=== PATIENT | male | born 1985 | race Caucasian/White ===

== ENCOUNTER 2019-11-22 18:35 | Inpatient (IN) | payer MEDICARE, MEDICAID, SELFPAY ==
[2019-11-22 18:40] VITALS: PULSE 80; RESP 16; TEMP 36.8; O2SAT 97; BMI 22.9
--- NOTE | 2019-11-22 18:41 | ED_ITS ---
Entered by Lorri Sidhu, acting as scribe for Atilio Tristan MD HPI - Psych General: Chief Complaint: Psychiatric Symptoms Stated Complaint: mhe Time Seen by Provider: 11/22/19 18:40 Source: patient Mode of arrival: ambulatory Limitations: no limitations History of Present Illness: HPI Narrative: 34 yo male presents to the ED for a MHE. The patient states he is agnostic and that means he needs to be in the [facility]. He said that in the generation in which he was born - he should not be 50/50 in his belief. He said he is addicted to drugs and it will show up as PCP but it isn't. He said he tamara has an intent to hurt someone else but then not really - it's like a T . He said his parents dropped him off and probably just left. He said he doesn't care if he is in the psych unit or where, but it needs to be somewhere in which he will not use drugs. He said he has been in a psych unit before. complaint: other (on drugs) Onset (ago): hour(s) (today) Duration: constant History of same: Yes Relieving factors: none Exacerbating factors: drug use Context: recent drug abuse Associated psychiatric symptoms: delusions Associated symptoms: Reports delusions and depression Treatments prior to arrival: none Review of Systems Const: Denies: fever or chills Eyes: Denies: change in vision ENMT: Denies: throat pain or mouth pain Card: Denies: chest pain Resp: Denies: shortness of breath GI: Denies: abdominal pain, nausea, vomiting or diarrhea Musc: Denies: back pain or joint pain Skin/Breast: Denies: rash Neuro: Denies: headache Psych: Reports: depression Endo: Denies: excessive urination Ron/Lymph: Denies: easy bruising All/Imm: Denies: hives PFSH ED PFSH: Statuses (acute, chronic, etc) shown below reflect problem list status as previously entered and may not be historically accurate Social History (System 11/06/19 @ 16:14 by Lizette Matta) Smoking and tobacco status: current every day smoker Physical Exam Const: COMMON NORMALS: no apparent distress, oriented x3 and healthy appearing HENMT: COMMON NORMALS: normocephalic and external nose normal HEAD & SCALP: normocephalic NOSE: external nose normal Eye: COMMON NORMALS: PERRL PUPIL: Yes PERRL Neck/C-Spine: COMMON NORMALS: full ROM and no lymphadenopathy Chest: COMMONS NORMALS: inspection of chest normal Resp: COMMON NORMALS: normal respiratory effort, no use of accessory muscles and clear to auscultation bilaterally AUSCULTATION: clear to auscultation bilaterally Cardio: COMMON NORMALS: regular rate and regular rhythm RATE: regular rate RHYTHM: regular rhythm GI: COMMON NORMALS: normal to inspection, nondistended, normoactive bowel sounds, soft to palpation, non-tender and no masses PALPATION: Yes soft Back/Pelvis: THORACIC SPINE/UPPER BACK: Yes normal to inspection Extremity: COMMON NORMALS: normal to inspection, full ROM and normal capillary refill Neuro: COMMON NORMALS: oriented x3 Psych: COMMON NORMALS: mental status grossly normal and cooperative MOOD & AFFECT: Yes depressed mood THOUGHT CONTENT: Yes delusion(s) Skin: COMMON NORMALS: no rashes or lesions noted GENERAL SKIN EXAM: no rashes or lesions noted MDM - Psych MDM Narrative: Medical decision making narrative: Patient presents here with suicidal ideations along with drug abuse. Patient is medically cleared I spoke to psychiatrist Dr. Pink and will admit. Lab Data: Labs: Lab Results 11/22/19 11/22/19 Range/Units 18:56 18:56 WBC 12.0 H (4.0-10.0) 10^3/ uL RBC 5.12 (4.1-5.3) 10^6/u L Hgb 17.6 H (11.7-16.6) g/dL Hct 51.3 (42.0-52.0) % MCV 100.2 H (80-94) fL MCH 34.4 H (28.0-34.0) pg MCHC 34.3 (30.0-36.0) g/dL RDW 12.9 (12.1-15.1) % Plt Count 281 (130-400) 10^3/c mm MPV 8.7 (7.4-10.4) fL Neut % (Auto) 79.3 % Lymph % (Auto) 12.1 % Lassen % (Auto) 6.8 % Eos % (Auto) 0.7 % Baso % (Auto) 0.5 % Neut # (Auto) 9.5 H (1.8-7.7) 10^3/u L Lymph # (Auto) 1.5 (0.8-4.8) 10^3/u L Lassen # (Auto) 0.8 (0.2-0.9) 10^3/u L Eos # (Auto) 0.1 (0.0-0.8) 10^3/u L Baso # (Auto) 0.1 (0.0-0.1) 10^3/u L Nucleated RBC % (a uto) 0 % Nucleated RBCs # 0.0 /100WBC Sodium 136 (136-145) mmol/L Potassium 4.3 (3.5-5.1) mmol/L Chloride 101 (98-107) mmol/L Carbon Dioxide 22 (22-29) mmol/L Anion Gap 17.3 (5-19) BUN 7 (6-20) mg/dL Creatinine 0.8 (0.7-1.2) mg/dL GFR Calculation 112.0 (90-130) mL/min Glucose 119 H (74-109) mg/dL Calcium 10.0 (8.5-10.5) mg/dL Total Bilirubin 0.8 (0.15-1.2) mg/dL AST 27 (0-40) U/L ALT 16 (0-41) U/L Alkaline Phosphata se 111 (40-130) IU/L Total Protein 8.2 (6.6-8.7) g/dL Albumin 5.2 (3.5-5.2) g/dL Globulin 3.0 (1.3-4.6) g/dL Salicylates < 0.3 L (3-10) mg/dL Acetaminophen < 5.0 L (10-30) ug/mL Ethyl Alcohol < 10 (0-10) mg/dL Discharge Plan Discharge Admit Provider: Domingo Pink Coding Level of Care Code ED Counter Manager for Chg Fwd Exam Problem Focused The documentation recorded by the Thea norris Valerie R, accurately reflects the service I personally performed and the decisions made by Kun bone Korby, MD Nov 22, 2019 18:35
[2019-11-22 19:01] LABS: Basophils # 0.1 10^3/uL (0.0-0.1); Basophils % 0.5 %; Eosinophils # 0.1 10^3/uL (0.0-0.8); Eosinophils % 0.7 %; Hematocrit 51.3 % (42.0-52.0); Hemoglobin 17.6 g/dL (11.7-16.6); Lymphocytes # 1.5 10^3/uL (0.8-4.8); Lymphocytes % 12.1 %; Mean Corpuscular HGB Conc 34.3 g/dL (30.0-36.0); Mean Corpuscular Hemoglobin 34.4 pg (28.0-34.0); Mean Corpuscular Volume 100.2 fL (80-94); Mean Platelet Volume 8.7 fL (7.4-10.4); Monocytes # 0.8 10^3/uL (0.2-0.9); Monocytes % 6.8 %; Neutrophils # 9.5 10^3/uL (1.8-7.7); Neutrophils % 79.3 %; Nucleated Red Blood Cells % 0 %; Platelet Count 281 10^3/cmm (130-400); Red Blood Count 5.12 10^6/uL (4.1-5.3); Red Cell Distribution Width 12.9 % (12.1-15.1)
[2019-11-22 19:18] LABS: Alanine Aminotransferase 16 U/L (0-41); Albumin Level 5.2 g/dL (3.5-5.2); Alkaline Phosphatase 111 IU/L (40-130); Anion Gap 17.3 (5-19); Aspartate Amino Transferase 27 U/L (0-40); Blood Urea Nitrogen 7 mg/dL (6-20); Carbon Dioxide 22 mmol/L (22-29); Chloride 101 mmol/L (98-107); Creatinine Clr Calc Pharmacy 136.5563; Glucose 119 mg/dL (74-109); Potassium 4.3 mmol/L (3.5-5.1); Sodium 136 mmol/L (136-145); Total Bilirubin 0.8 mg/dL (0.15-1.2); Total Protein 8.2 g/dL (6.6-8.7)
[2019-11-22 19:21] LABS: Acetaminophen < 5.0 ug/mL (10-30); Alcohol Level < 10 mg/dL (0-10); Salicylate < 0.3 mg/dL (3-10)
--- NOTE | 2019-11-22 19:34 | PC.NURSE ---
Patient requested water, okayed by doctor. Water was given.
[2019-11-22 20:29] VITALS: BP 149/104; PULSE 74; RESP 16; O2SAT 98
[2019-11-22 20:50] VITALS: BP 149/104; PULSE 74; RESP 16; O2SAT 98
[2019-11-22 22:00] VITALS: BP 154/115; PULSE 84; RESP 19; TEMP 36.6; O2SAT 98
[2019-11-22 22:26] LABS: Amphetamines Screen Urine Negative (Negative); Barbiturates Screen Urine Negative (Negative); Benzodiazepines Screen Urine Positive (Negative); Cocaine Screen Urine Negative (Negative); Opiate Screen Urine Negative (Negative); PCP Screen Urine Negative (Negative); THC Screen Urine Negative (Negative)
--- NOTE | 2019-11-22 23:08 | CTR_ITS ---
PROCEDURE INFORMATION: Exam: CT Head Without Contrast Exam date and time: 11/22/2019 11:50 PM Age: 34 years old Clinical indication: Injury or trauma; Fall; Initial encounter; Blunt trauma (contusions or hematomas); Without loss of consciousness TECHNIQUE: Imaging protocol: Computed tomography of the head without contrast. Total DLP: 864.65 mGy-cm Radiation optimization: All CT scans at this facility use at least one of these dose optimization techniques: automated exposure control; mA and/or kV adjustment per patient size (includes targeted exams where dose is matched to clinical indication); or iterative reconstruction. COMPARISON: CT head wo con* [id number] 12/07/2016 10:02 PM FINDINGS: Brain: There is a moderate amount of acute subarachnoid blood in the left frontal and temporal regions. Difficult to exclude very small amount of subdural blood or hemorrhagic contusion in the left temporal region, (axial image #20, series 2). Followup will be helpful, as clinically directed. No significant mass effect or midline shift. No definite acute infarct by CT. Ventricles: Ventricle size is normal for age. Bones/joints: No definite acute skull fracture. Sinuses: Mild mucosal thickening in the sphenoid and ethmoid sinuses. Included paranasal sinuses otherwise appear essentially clear. Mastoid air cells: No significant acute finding. CT/CT head wo con* [id number] IMPRESSION: 1. Acute subarachnoid hemorrhage, presumably post-traumatic. See above discussion. 2. No significant mass effect or midline shift. 3. Other findings discussed above. Radiation Dose CTDIVOL = (mGy): DLP = 864.65 (mGy-cm)
[2019-11-23] VITALS (22 sets, daily range): BP systolic 114–136; BP diastolic 65–94; PULSE 66–112; RESP 15–22; O2SAT 89–96
[2019-11-23] MEDS: ziprasidone 20 mg/mL SDV IM (00:22)
--- NOTE | 2019-11-23 00:24 | PC.NURSE ---
PT BEGAN YELLING OUT THAT ANOTHER PT ON THE UNIT WAS AGITATING HIM BECAUSE HE COULD HEAR HIM. PT BECAME INCREASINGLY AGITATED AND YELLING THAT HE COULD NOT STAND TO HEAR THE VOICE. PT AGREEABLE TO PRN SO RECEIVED GEODON 20MGS IM FOR AGITATION. REMAINS IN BED QUIETLY AT THIS TIME. WILL CONTINUE TO MONITOR,.
--- NOTE | 2019-11-23 01:05 | PC.NURSE ---
PT RESTING QUIETLY AT THIS TIME WITH EYES CLOSED. PT NOTED TO RELAX AND FALL ASLEEP 30 MINUTES AFTER PRN GEODON ADMINISTERED.. WILL CONTINUE WITH FREQUENT MONITORING
--- NOTE | 2019-11-23 01:25 | PC.NURSE ---
received from [facility] and admitted to ICU 10. S/p intentional fall with reported ICH and bleeding from left ear. Pt received Geodon IM prior to transfer and currently answers his name and year of . He is not following commands however he does move all extremities equally and purposefully to return to position of comfort. Pupils are 1 mm and fixed bilaterally. Sitter at bedside due to continued 96 hour hold
--- NOTE | 2019-11-23 02:18 | PM.TDS ---
Transfer Summary Providers Date of Admission: 11/22/19 19:54 Date of Discharge: 11/23/19 Attending Provider at Admission: Domingo Pink MD Attending Provider at Transfer: Domingo Pink MD Primary Care Provider: SANTIAGO Laird Anticipated Date of Transfer: Anticipated date of transfer: 11/23/19 Receiving Facility & Provider: Receiving Provider: [] Receiving facility: [] Reason for Visit Reason for Visit: Reason For Visit: SUICIDAL IDEATION, 96 HR HOLD Hospital Course Hospital Course: This patient is agnostic and was put on 96-hour hold in NPU for acute psychosis, U tox positive for benzodiazepines, he had acute flareup when another patient was arguing with him and was trying to quote Bible. At that time he threw himself on the floor. Analytics Specialist was consulted after that event. Patient was evaluated on stat basis, his neuro examination was unremarkable other than dilated sluggish pupil bilaterally, his right ear had mild to moderate oozing of blood without any evidence of laceration of external ear canal. NIH 0, CT head was obtained on stat basis which showed traumatic moderate subarachnoid hemorrhage with possible fracture of right mastoid bone. Patient was transferred to ICU on stat basis after reviewing CT head, I have given him transnemic acid, 1 g of Keppra, we do not have nimodipine in our pharmacy as formulary medication, target blood pressure to keep below 110 mmHg. Currently he is in semi-galindo position, he was given Ativan 0.[address] head. I am not able to get more information from him I am not seeing any H&P done by psychiatrist as well. Currently patient is sedated and I am limited to get information. Discharge Summary: Patient is being transferred to an appropriate facility with availability of psychiatrist and neurosurgeon for acute psychosis and traumatic subarachnoid hemorrhage evaluation. Neurosurgeon is not available at [facility] [place] for this week For now I am giving Cardene drip to keep blood pressure less than 110, Keppra loading dose, transnemic acid, we do not have nimodipine as formulary here. Physical Exam Narrative: EXAM NARRATIVE: Currently patient is sedated, on my earlier examination, his NIH score 0 Bright bleed from right ear without evidence of laceration of external canal S1-S2, without any signs of heart failure or murmur Lungs are clear to auscultation without any adventitious sounds Abdomen soft nontender nondistended He is able to move all of his extremities, reflexes cubical, bilateral pupils dilated sluggish to react to light, no cerebellar signs TS Data Data Completed and Pending: Completed Studies During Hospitalization Category Date Time Status CT head wo con* 7 0450 Stat Cat Scan 11/22/19 23:08 Completed Labs from last 24 hours 11/22/19 11/22/19 11/22/19 20:00 18:56 18:56 WBC 12.0 H RBC 5.12 Hgb 17.6 H Hct 51.3 MCV 100.2 H MCH 34.4 H MCHC 34.3 RDW 12.9 Plt Count 281 MPV 8.7 Neut % (Auto) 79.3 Lymph % (Auto) 12.1 Garrett % (Auto) 6.8 Eos % (Auto) 0.7 Baso % (Auto) 0.5 Neut # (Auto) 9.5 H Lymph # (Auto) 1.5 Garrett # (Auto) 0.8 Eos # (Auto) 0.1 Baso # (Auto) 0.1 Nucleated RBC % (a uto) 0 Nucleated RBCs # 0.0 Sodium 136 Potassium 4.3 Chloride 101 Carbon Dioxide 22 Anion Gap 17.3 BUN 7 Creatinine 0.8 GFR Calculation 112.0 Glucose 119 H Calcium 10.0 Total Bilirubin 0.8 AST 27 ALT 16 Alkaline Phosphata se 111 Total Protein 8.2 Albumin 5.2 Globulin 3.0 Salicylates < 0.3 L Urine Opiates Scre en Negative Acetaminophen < 5.0 L Ur Barbiturates Sc reen Negative Ur Phencyclidine S crn Negative Ur Amphetamines Sc reen Negative U Benzodiazepines Scrn Positive H Urine Cocaine Scre en Negative U Marijuana (THC) Screen Negative Ethyl Alcohol < 10 Addt'l Data from Hospital Stay: [facility] [address] [place] [address] CT Scan Report Signed with Shashank Patient: Estevan Vick #: [id number] : 1985Acct#:[id number] Age/Sex: 34 / MADM Date: 11/22/19 [facility] Attending Dr: Domingo Pink MD Ordering Provider/Ordering MD: Jerome Christina MD Date of Service: 11/22/19 Procedure(s): CT head wo con* 50705 Accession Number(s): [id number] Report Number: [id number]/CT head wo con* [id number] This report contains findings that may be critical to patient care. I discussed the critical exam findings by phone with Jerome Carrillo at 12:31 AM CHIEF SCIENCE OFFICER, 11/23/2019. We discussed the subarachnoid blood and possible subdural blood. Additional findings were also discussed that were not included in the initial report. Patient reportedly has blood in the external ear canal on the right. There is a small amount fluid or possible blood in the right mastoid air cells. No significant fluid in the right middle ear cavity at this time. I think there could be a very subtle nondisplaced fracture in the right mastoid region, just superior to the right ear. (Probably best seen on axial image #15, series 2 ). This is a subtle finding and somewhat equivocal. However,a similar lucency is not seen on the comparison exam. Given the clinical findings, it is probably safer to assume that there is a subtle nondisplaced fracture through this region. The findings were acknowledged and understood. Radiation Dose CTDIVOL = (mGy): DLP = 864.65 (mGy-cm) Addendum Dictated By: Rickey Orozco MD Addendum Signed By: Rickey Orozco MDSigned Date/Time:11/23/19 0046 Addendum Cosigned By: PROCEDURE INFORMATION: Exam: CT Head Without Contrast Exam date and time: 11/22/2019 11:50 PM Age: 34 years old Clinical indication: Injury or trauma; Fall; Initial encounter; Blunt trauma (contusions or hematomas); Without loss of consciousness TECHNIQUE: Imaging protocol: Computed tomography of the head without contrast. Total DLP: 864.65 mGy-cm Radiation optimization: All CT scans at this facility use at least one of these dose optimization techniques: automated exposure control; mA and/or kV adjustment per patient size (includes targeted exams where dose is matched to clinical indication); or iterative reconstruction. COMPARISON: CT head wo con* [id number] 12/07/2016 10:02 PM FINDINGS: Brain: There is a moderate amount of acute subarachnoid blood in the left frontal and temporal regions. Difficult to exclude very small amount of subdural blood or hemorrhagic contusion in the left temporal region, (axial image #20, series 2). Followup will be helpful, as clinically directed. No significant mass effect or midline shift. No definite acute infarct by CT. Ventricles: Ventricle size is normal for age. Bones/joints: No definite acute skull fracture. Sinuses: Mild mucosal thickening in the sphenoid and ethmoid sinuses. Included paranasal sinuses otherwise appear essentially clear. Mastoid air cells: No significant acute finding. CT/CT head wo con* [id number] IMPRESSION: 1. Acute subarachnoid hemorrhage, presumably post-traumatic. See above discussion. 2. No significant mass effect or midline shift. Vitals: Last Vital Signs Temp 97.8 F 11/22/19 22:00 Pulse 84 11/22/19 22:00 Resp 19 H 11/22/19 22:00 BP 154/115 11/22/19 22:00 Pulse Ox 98 11/22/19 22:00 TS Medications Medications Home Medications baclofen 10 mg tablet 10 mg PO TID 10/27/19 [History] citalopram 10 mg tablet 10 mg PO ONCE 10/27/19 [History] clonidine HCl 0.1 mg tablet 0.1 mg PO TID 10/27/19 [History] cyanocobalamin (vitamin B-12) 100 mcg tablet 100 mcg PO ONCE 10/27/19 [History] dextromethorphan-guaifenesin 30 mg-600 mg tablet extended [id number] hr 1 tab PO Q12H 10/27/19 [History] dicyclomine 20 mg tablet 20 mg PO TID 10/27/19 [History] divalproex 500 mg tablet,extended release 24 hr 500 mg PO ONCE 10/27/19 [History] famotidine 20 mg tablet 20 mg PO BID 10/27/19 [History] pyridoxine (vitamin B6) 50 mg capsule 50 mg PO ONCE 10/27/19 [History] zolpidem 10 mg tablet 10 mg PO ONCE 10/27/19 [History] baclofen 10 mg tablet 10 mg PO TID PRN #90 tab 10/31/19 [Rx] citalopram 10 mg tablet 10 mg PO .HS #30 tab 10/31/19 [Rx] divalproex 500 mg tablet,extended release 24 hr 500 mg PO .HS #30 tab 10/31/19 [Rx] doxepin 10 mg capsule 10 mg PO .HS cap 10/31/19 [History Confirmed 10/31/19] Active Medications Acetaminophen (Tylenol) 650 mg PO Q4H PRN PRN Reason: MILD PAIN Benztropine Mesylate (Cogentin) 1 mg PO BID PRN PRN Reason: Mild Extrapyramidal symptoms Camphor/Menthol/Phenol (Blistex) 1 applic TOPICAL Q1H PRN PRN Reason: DRYNESS Diphenhydramine HCl (Benadryl) 50 mg IM ONCE PRN PRN Reason: Severe Extrapyramidal Symptoms Diphenhydramine HCl (Benadryl) 50 mg IM Q4H PRN PRN Reason: Severe Aggression Hydroxyzine Pamoate (Vistaril) 50 mg PO Q6H PRN PRN Reason: ANXIETY Levetiracetam (Keppra) 1,000 mg PO BID HANNAH Loperamide HCl (Imodium Capsule) 2 mg PO Q6H PRN PRN Reason: DIARRHEA Lorazepam (Ativan) 2 mg IM Q4H PRN PRN Reason: Severe Aggression Nicotine (Nicoderm 21 Mg Patch) 1 patch TRANSDERMA DAILY PRN PRN Reason: NICOTINE WITHDRAWAL Nicotine Polacrilex (Nicorette) 2 mg BUCCAL Q2H PRN PRN Reason: NICOTINE WITHDRAWAL Olanzapine (Zyprexa Zydis) 5 mg PO Q4H PRN PRN Reason: Agitation/Psychosis Ondansetron HCl (Zofran) 4 mg PO Q6H PRN PRN Reason: NAUSEA AND VOMITING Trazodone HCl (Desyrel) 50 mg PO BEDTIME PRN PRN Reason: SLEEP Discharge Plan Discharge Prescriptions: No Action doxepin 10 mg capsule 10 mg PO .HS RF: 0 divalproex [Depakote ER] 500 mg tablet extended release 24 hr 500 mg PO .HS Qty: 30 RF: 0 citalopram [Celexa] 10 mg tablet 10 mg PO .HS Qty: 30 RF: 0 baclofen 10 mg tablet 10 mg PO TID PRN (Reason: muscle spasm) Qty: 90 RF: 0 Transfer Attestations Time Spent in Transfer Care*: greater than 30 min Status at Transfer: Cognitive status at transfer: mildly impaired cognition, Behavioral status at transfer: cooperative, Quality Metrics Clinical Quality Measures: During this hospital stay, did patient experience: None Coding Level of Care Code Acute Senior Clinical Project Manager for Iza Owens
--- NOTE | 2019-11-23 03:21 | PM.CONSULT ---
Providers/Reason For Consult Consulting Physican/Specialty*: Hospitalist service Reason for Consult*: Traumatic subarachnoid hemorrhage Attending Physician: Domingo Pink MD Primary Care Provider: SANTIAGO Laird History of Present Illness History of Present Illness Estevan Vick is a 34 year old male who has been admitted to neuropsychiatric unit for acute psychosis secondary to polysubstance abuse, he was put on 96-hour hold. He is agnostic and had aggressive argument with 1 of other neuropsychiatric patient when Bible was quoted. Patient was very aggressive initially and then he threw himself on the floor and he started bleed from his right ear, cutter wet machine was consulted for further evaluation, NIH score 0, head CT showed traumatic subarachnoid hemorrhage, there is limited information available as I am not able to see any history and physical. Patient currently is sedated because of Ativan that was given to get CT head. We are waiting for placement to neuro ICU with availability of inpatient psychiatrist because of his acute psychosis and traumatic subarachnoid hemorrhage. Not able to obtain past medical, surgical and family history Review of Systems General: Reports: ROS unobtainable due to mental status Meds/Allergies Home Medications and Allergies Home Medications Medication Instructions Recorded Confirmed Type baclofen 10 mg tablet 10 mg PO TID 10/27/19 History citalopram 10 mg tablet 10 mg PO ONCE 10/27/19 History clonidine HCl 0.1 mg tablet 0.1 mg PO TID 10/27/19 History cyanocobalamin (vitamin B-12) 100 100 mcg PO ONCE 10/27/19 History mcg tablet dextromethorphan-guaifenesin 30 1 tab PO Q12H 10/27/19 History mg-600 mg tablet extended hr dicyclomine 20 mg tablet 20 mg PO TID 10/27/19 History divalproex 500 mg tablet,extended 500 mg PO ONCE 10/27/19 History release 24 hr famotidine 20 mg tablet 20 mg PO BID 10/27/19 History pyridoxine (vitamin B6) 50 mg 50 mg PO ONCE 10/27/19 History capsule zolpidem 10 mg tablet 10 mg PO ONCE 10/27/19 History doxepin 10 mg capsule 10 mg PO .HS cap 10/31/19 10/31/19 History Allergies Allergy/AdvReac Type Severity Reaction Status Date / Time haloperidol [From Haldol] Allergy Unknown Verified 11/06/19 16:14 lamotrigine [From Lamictal] Allergy Unknown Verified 11/06/19 16:14 shellfish derived Allergy Unknown Verified 11/06/19 16:14 Current Medications Current Medications Generic Name Dose Route Start Last Admin Trade Name Freq PRN Reason Stop Dose Admin Nicardipine HCl 25 mg/ Sodium 250 mls @ 0 mls/hr 11/23/19 03:00 11/23/19 03:11 Chloride IV 10 mg/hr .Q0M HANNAH 100 mls/hr Titration Protocol Per Protocol PFSH Acute PFSH: Statuses (acute, chronic, etc) shown below reflect problem list status as previously entered and may not be historically accurate Social History (System 11/06/19 @ 16:14 by Lizette Matta) Smoking and tobacco status: current every day smoker Vitals/I&O/Wt Last Vital Signs Temp 97.8 F 11/22/19 22:00 Pulse 79 11/23/19 03:00 Resp 19 H 11/23/19 03:00 BP 127/79 11/23/19 03:00 Pulse Ox 94 11/23/19 03:00 11/22/19 11/22/19 11/23/19 14:59 22:59 06:59 Intake Total Balance Weight last 48 hrs Weight 72.575 kg Physical Exam Narrative: EXAM NARRATIVE: Patient is sedated with benzodiazepine for now Otherwise he was able to move all of his extremities, NIH score 0, right ear bleeding positive without any laceration, Finger-nose test positive Bilateral pupils sluggish, dilated S1, S2 Lungs are clear to auscultation Abdomen is soft nontender nondistended Acute psychosis with tangential thoughts A&P Assessment and plan (1) Acute psychosis: Status: Acute Code(s): F23 - Brief psychotic disorder (2) Traumatic subarachnoid hemorrhage: Status: Acute Code(s): S06.6X9A - Traumatic subarachnoid hemorrhage with loss of consciousness of unspecified duration, initial encounter Additional A&P Information Transfer to [facility], Dr. Eugene has accepted the patient to neuro ICU also need inpatient psychiatry because of his acute psychosis Currently I am treating him with Keppra 1 g, Tranxene Cy acid 1 g, Cardene drip to keep blood pressure less than 110, currently he is sedated, Consult Attestations Medical Necessity Statement: Transfer to neurosurgery ICU Time Spent in Patient Care: 60 Coding Level of Care Code Acute Diabetes Specialist for Iza Fwd Diagnoses Acute psychosis F23 Traumatic subarachnoid hemorrhage S06.6X9A
--- NOTE | 2019-11-23 03:46 | PC.NURSE ---
Patient behavior At approximately 2250 the patient began yelling in the hallway at another patient. Estevan known to be agnostic, was stating yazdanism delusions and the other patient was psychotic (carrying a bible) and yelling back at him. The other patient was taken to the other end of the sen continuing to yell garbled statements and Estevan walked towards the day room yelling at staff that Satedith was good and Damián was bad and that he did not want to be around that person (patient). He was offered to return to his room away from other patients and he loudly yelled and refused to move. He continued to yell anti-Bahman/yazdanism statements. He was offered medication, water and asked what we could do to help him and he stated he wanted a knife and made a cutting motion across his throat. I reminded him that we were he to help him and to keep him safe. He looked to the ceiling and then moved under a camera and asked if it worked. I stated I could not confirm. Security, house calls nurse practitioner and 2 other staff were standing behind me. Security was making comforting and reassuring statements and patient appeared to be calming. He stood with his arms out to his sides and counted 3,2,1 and then free fell forward intentionally, using no stopping reflexes. Code 10 called at 2258. Staff approached patient, unresponsive (less than a minute) with a pulse, was rolled over over, sternal rub, began moving and opening eyes. Vitals taken 147/[address] Pink, psychiatrist gave order for hospitalist consult. Orders obtained from Dr. Christina for stat CT, which was completed at 2308. Patient returned to unit on stretcher. Dr. Christina on unit to see patient and stated possible tympanic membrane rupture due to blood in ear . Orders received to monitor patient, neuro checks every [address] Pink order 20MG Geodon IM one time now because patient immediately became agitated and enraged with patients talking in the hallway. Dr. Christina returned to unit and stated patient had a subarachanoid hemorrhage. Dr. Chritsina spoke with Dr. Pink and decision was made to transfer for ICU 0120.
--- NOTE | 2019-11-23 04:11 | PC.NURSE ---
Addendum entered by Keisha Lemus RN 11/23/19 04:13: Patient off unit at approximately 2304 11/22/[address] Original Note: Patient off unit Patient transferred to CT by stretcher with RN and security.
--- NOTE | 2019-11-23 04:12 | PC.NURSE ---
Patient returned to unit Patient returned to unit at 2320 11/22/19 with RN and security on stretcher.
--- NOTE | 2019-11-23 04:16 | PC.NURSE ---
Patient behavior at approximately 204911/22/19 Estevan was sitting on bench and another patient told him to move over. Estevan yelled at patient which was holding a bible that he was agnostic and to get away from him. Patient was removed to another area and Estevan was calmed.
--- NOTE | 2019-11-23 04:24 | PC.NURSE ---
At 0052 11/23/[address] Christina made the decision to transfer patient to ICU.
--- NOTE | 2019-11-23 04:25 | PC.NURSE ---
At 0120 11/23/19 patient was transferred to ICU on stretcher with RN, Security and house sitter with valuables. Report given to Kalina MERRILL.
--- NOTE | 2019-11-23 05:17 | PC.NURSE ---
[facility] 2 and Labatolol sent with ambulance for extended transfer.
--- NOTE | 2019-11-23 06:04 | PC.NURSE ---
0230 11/23/19 Left phone messages with sisters number and parents number to contact [facility] for an update on a family members status, permission on notification form.
--- NOTE | 2019-11-24 20:25 | PC.NURSE ---
11/22/19 @ 9090 Fall risk initiated due to intentional fall
== END 2019-11-23 05:17 | disposition short-term general hospital (02) | DRG 885 ==
LOC: ER 20:08 → NP 20:20 → ICU 11-23 01:38
PROVIDERS: Admitting Provider Psychiatry & Neurology Psychiatry; Emergency Provider Emergency Medicine; Family Provider Nurse Practitioner; PCP Nurse Practitioner; Visit Provider Psychiatry & Neurology Psychiatry
DX: F23 Brief psychotic disorder (principal); S06.6X9A Traumatic subarachnoid hemorrhage with loss of consciousness of unspecified duration, initial encounter; F17.210 Nicotine dependence, cigarettes, uncomplicated; F11.129 Opioid abuse with intoxication, unspecified; X83.8XXA Intentional self-harm by other specified means, initial encounter; Y92.238 Other place in hospital as the place of occurrence of the external cause
CPT/HCPCS: 12345; 36415; 51702; 70450; 80053; 80307; 85025; 99284; J3486; J7050

== ENCOUNTER 2019-12-05 19:50 | Emergency (ER) | payer MEDICARE, MEDICAID, SELFPAY ==
[2019-12-05 19:52] VITALS: BP 152/92; PULSE 102; RESP 16; TEMP 36.6; O2SAT 98; BMI 24.3
--- NOTE | 2019-12-05 19:54 | ED_ITS ---
Entered by Shireen Sparks, acting as scribe for Anupama Cintron DO HPI - Psych General: Chief Complaint: Psychiatric Symptoms Stated Complaint: 96 Time Seen by Provider: 12/05/19 19:53 Source: patient Mode of arrival: ambulatory Limitations: no limitations History of Present Illness: HPI Narrative: 34 yo Male presents to ED with complaint of 96 hour hold. Pt was brought in and dropped off by the police with no report from the police to nursing staff. Pt is calm and polite in the patient room. Pt denies homicidal or suicidal ideation. Pt states that he was at home when he was picked up and brought in due to his parents having concerns about his well being. Paperwork given to the ED staff is not a complete 96 hour hold packet. MD complaint: other (96 hour hold) Onset (ago): unknown Duration: resolved prior to arrival Relieving factors: none Exacerbating factors: none Associated psychiatric symptoms: none Associated symptoms: Reports no associated symptoms; Deny depression, homicidal ideation or suicidal ideation Treatments prior to arrival: none Review of Systems Const: Denies: fever, chills, change in appetite or malaise Eyes: Denies: change in vision, blurry vision, eye discharge or eye redness ENMT: Denies: throat pain, uvular edema, painful swallowing, mouth pain, dental pain, nasal congestion or facial/sinus pain Card: Denies: chest pain, irregular heart rhythm, swelling of feet/ankles, shortness of breath on exertion, shortness of breath when lying down or leg pain with exertion Resp: Denies: shortness of breath, productive cough, wheezing or coughing up blood GI: Denies: abdominal pain, nausea, vomiting, diarrhea, constipation or fecal incontinence : Denies: flank pain, painful urination, urinary frequency, urinary urgency or urinary hesitancy Musc: Denies: neck pain, back pain, extremity pain or extremity swelling Skin/Breast: Denies: rash, itching, redness, yellow skin or dry skin Neuro: Denies: headache, numbness in extremities, weakness in extremities, changes in sensation, lack of coordination or difficulty walking Psych: Denies: anxiety, depression, mood swings, panic attacks, sleeping less, suicidal ideation or homicidal ideation Endo: Denies: excessive urination, excessive thirst or tired all the time Ron/Lymph: Denies: easy bruising, petechiae or enlarged lymph nodes All/Imm: Denies: hives, throat swelling, facial swelling, acute wheezing or seasonal allergies PFSH ED PFSH: Statuses (acute, chronic, etc) shown below reflect problem list status as previously entered and may not be historically accurate Social History (System 11/06/19 @ 16:14 by Lizette Matta) Smoking and tobacco status: current every day smoker Physical Exam Const: COMMON NORMALS: no apparent distress, oriented x3, no limitations, healthy appearing, alert and well nourished GENERAL APPEARANCE: cooperative, comfortable, well kempt and well developed ORIENTATION/CONSCIOUSNESS: Yes awake, Yes oriented to person, Yes oriented to place and Yes oriented to time HENMT: COMMON NORMALS: normocephalic, head/scalp atraumatic, hearing grossly normal bilaterally, external ears normal, EAC's normal, TM's normal bilaterally, external nose normal, nasal mucous membranes and turbinates normal, moist oral mucous membranes, oropharynx normal, dentition normal and gingiva normal HEAD & SCALP: normal to inspection, normocephalic and atraumatic FACE & SINUS: normal facial exam NOSE: external nose normal and nasal mucous membranes and turbinates normal EXTERNAL EAR: Yes external ears normal EXTERNAL AUDITORY CANAL: EAC's normal TYMPANIC MEMBRANE: TM's normal bilaterally MOUTH: oral and palatal mucosa normal, lip normal and tongue normal THROAT: no uvular edema Eye: COMMON NORMALS: PERRL, EOMs intact bilaterally, conjunctivae normal, no scleral icterus and normal visual khoury by confrontation GENERAL EYE: normal appearance of both eyes and normal light reflex VISUAL ACUITY: Yes acuity normal ALIGNMENT: Yes alignment normal PERIORBITAL: periorbital findings normal EYELID: eyelids normal CONJUNCTIVA: Yes conjunctivae normal SCLERA: sclerae normal PUPIL: Yes PERRL and Yes accommodation reflex normal DIRECT OPHTHALMOSCOPY: Yes normal light reflex Neck/C-Spine: COMMON NORMALS: full ROM, no lymphadenopathy, supple, no meningeal signs and no JVD GENERAL: Yes normal visual inspection CAROTIDS: Yes normal carotid upstroke CERVICAL SPINE: Yes cervical ROM normal Lymph: LYMPHATIC: no lymphadenopathy noted Chest: COMMONS NORMALS: inspection of chest normal CHEST: Yes symmetrical chest wall rise Resp: COMMON NORMALS: normal respiratory effort, no retractions, no use of accessory muscles and clear to auscultation bilaterally EFFORT & INSPECTION: Yes able to speak in complete sentences and Yes symmetric chest movement AUSCULTATION: clear to auscultation bilaterally Cardio: COMMON NORMALS: no JVD, regular rate, regular rhythm, S1 normal heart sound, S2 normal heart sound, no murmurs and peripheral pulses 2+ throughout RATE: regular rate RHYTHM: regular rhythm HEART SOUNDS: S1 normal and S2 normal PERIPHERAL PULSES: pulses 2+ throughout GI: COMMON NORMALS: normal to inspection, nondistended, normoactive bowel sounds and non-tender : COMMON NORMALS: Yes no CVA tenderness BLADDER/KIDNEY EXAM: Yes no CVA tenderness Back/Pelvis: COMMON NORMALS: no CVA tenderness, thoracic and lumbar spine normal to inspection, no thoracic nor lumbar tenderness and thoraco-lumbar ROM normal Extremity: COMMON NORMALS: normal to inspection, full ROM, normal capillary refill, no calf tenderness and no pedal edema Neuro: COMMON NORMALS: oriented x3, CN's II-XII intact bilaterally, moves all extremities, no focal motor deficits, no sensory deficits noted and gait normal SENSORIUM/ORIENTATION: Yes alert, Yes oriented to person, Yes oriented to place and Yes oriented to time MENINGEAL SIGNS: Yes no meningeal signs SPEECH: speech normal GAIT: Yes normal gait MOTOR EXAM: strength 5/5 throughout, no pronator drift and no tremor noted Psych: COMMON NORMALS: mental status grossly normal, thought process normal, cooperative, affect normal, speech normal and activity/motor behavior normal APPEARANCE: Yes well kempt SPEECH: Yes normal speech THOUGHT PROCESS: normal thought process THOUGHT CONTENT: Yes normal thought content INSIGHT: insight good Skin: COMMON NORMALS: no rashes or lesions noted, no wounds, skin turgor normal and no jaundice GENERAL SKIN EXAM: no rashes or lesions noted and turgor normal Discharge Plan Discharge Patient Disposition: Home, Self-Care Clinical Impression: Encounter for medical screening examination, Depression Condition: Stable Prescriptions: No Action doxepin 10 mg capsule 10 mg PO .HS RF: 0 divalproex [Depakote ER] 500 mg tablet extended release 24 hr 500 mg PO .HS Qty: 30 RF: 0 citalopram [Celexa] 10 mg tablet 10 mg PO .HS Qty: 30 RF: 0 baclofen 10 mg tablet 10 mg PO TID PRN (Reason: muscle spasm) Qty: 90 RF: 0 Referrals: Melissa Prather, FLAT BED OPERATOR-C [Primary Care Provider] - Discharge Diet: Usual diet Discharge Activity: Resume usual activity Patient Instructions: Depression Coding Level of Care Code ED Spout Liner Helper for Chg Fwd Exam Problem Focused The documentation recorded by the Clare norris Carmen, accurately reflects the service I personally performed and the decisions made by Abdulaziz bone Amanda, DO Dec 05, 2019 19:50
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
[2019-12-05 21:11] VITALS: BP 127/88; PULSE 100; RESP 16; O2SAT 98
== END 2019-12-05 21:16 | disposition home or self-care (01) ==
PROVIDERS: Emergency Provider Emergency Medicine; Family Provider Nurse Practitioner; PCP Nurse Practitioner
DX: F32.9 Major depressive disorder, single episode, unspecified (principal); F17.210 Nicotine dependence, cigarettes, uncomplicated
CPT/HCPCS: 12345; 99281

== ENCOUNTER → 2020-10-04 11:44 | Outpatient (BNVA) | payer MEDICARE, MEDICAID, SELFPAY | PROVIDERS: Family Provider Nurse Practitioner; PCP Nurse Practitioner; Visit Provider Nurse Practitioner Psychiatric/Mental Health | DX: Z79.899 Other long term (current) drug therapy (principal) | CPT/HCPCS: 80053; 80178 ==

== ENCOUNTER → 2020-11-04 09:14 | Outpatient (BNVA) | payer MEDICARE, MEDICAID, SELFPAY | PROVIDERS: Family Provider Nurse Practitioner; PCP Nurse Practitioner; Visit Provider Nurse Practitioner Psychiatric/Mental Health | DX: F33.1 Major depressive disorder, recurrent, moderate (principal); F41.1 Generalized anxiety disorder; F17.210 Nicotine dependence, cigarettes, uncomplicated; Z79.899 Other long term (current) drug therapy | CPT/HCPCS: 99212 ==

== ENCOUNTER → 2020-12-02 08:55 | Outpatient (BNVA) | payer MEDICARE, MEDICAID, SELFPAY | PROVIDERS: Family Provider Nurse Practitioner; PCP Nurse Practitioner; Visit Provider Nurse Practitioner Psychiatric/Mental Health | DX: F33.1 Major depressive disorder, recurrent, moderate (principal); F41.1 Generalized anxiety disorder | CPT/HCPCS: 99213 ==

== ENCOUNTER → 2021-01-11 07:46 | Outpatient (BNVA) | payer MEDICARE, MEDICAID, SELFPAY | PROVIDERS: Family Provider Nurse Practitioner; PCP Nurse Practitioner; Visit Provider Nurse Practitioner Psychiatric/Mental Health | DX: F33.1 Major depressive disorder, recurrent, moderate (principal); F41.1 Generalized anxiety disorder | CPT/HCPCS: 99213 ==

== ENCOUNTER → 2021-01-13 08:35 | Outpatient (BNVA) | payer MEDICARE, MEDICAID, SELFPAY | PROVIDERS: Family Provider Nurse Practitioner; PCP Nurse Practitioner; Visit Provider Nurse Practitioner Psychiatric/Mental Health | DX: F23 Brief psychotic disorder (principal); F43.0 Acute stress reaction; Z79.899 Other long term (current) drug therapy | CPT/HCPCS: 80053; 80164 ==

== ENCOUNTER → 2021-01-20 08:21 | Outpatient (BNVA) | payer MEDICARE, MEDICAID, SELFPAY | PROVIDERS: Family Provider Nurse Practitioner; PCP Nurse Practitioner; Visit Provider Nurse Practitioner Psychiatric/Mental Health | DX: Z03.89 Encounter for observation for other suspected diseases and conditions ruled out (principal); Z79.899 Other long term (current) drug therapy | CPT/HCPCS: 80061; 83036 ==

== ENCOUNTER → 2021-02-22 07:42 | Outpatient (BNVA) | payer MEDICARE, MEDICAID, SELFPAY | PROVIDERS: Family Provider Nurse Practitioner; PCP Nurse Practitioner; Visit Provider Psychiatry & Neurology Psychiatry | DX: F33.1 Major depressive disorder, recurrent, moderate (principal); F41.1 Generalized anxiety disorder | CPT/HCPCS: 99214 ==

== ENCOUNTER → 2021-03-08 08:20 | Outpatient (BNVA) | payer MEDICARE, MEDICAID, SELFPAY | PROVIDERS: Family Provider Nurse Practitioner; PCP Nurse Practitioner; Visit Provider Nurse Practitioner Psychiatric/Mental Health | DX: F33.1 Major depressive disorder, recurrent, moderate (principal); F41.1 Generalized anxiety disorder | CPT/HCPCS: 99214 ==

== ENCOUNTER 2021-04-14 11:21 | Outpatient (CLI) | payer MEDICARE, MEDICAID, SELFPAY ==
--- NOTE | 2021-04-14 11:45 | MR_ITS ---
WS: [id number] MRI HEAD WITHOUT CONTRAST TECHNIQUE: Sagittal T1, T2 axial, T2 axial FLAIR, axial and coronal T1 images, axial susceptibility w eighted imaging, axial diffusion weighted images, and coronal T2 images were obtained. CLINICAL INFORMATION: R51.9 - Headache, unspecified COMPARISON: CT November 22, 2019 FINDINGS: No evidence of restricted diffusion to suggest acute ischemia. Ventricular system and basilar cistern s are patent. No suspicious intracranial signal abnormalities. Normal tamayo-white differentiation. Nor mal posterior fossa. Normal vascular flow voids at the skull base. No extra-axial fluid collections. No evidence of mass or mass effect. Paranasal sinuses and mastoid air cells are well aerated. No hemo siderin on susceptibly weighted images. Normal optic chiasm and pituitary infundibulum. Normal cavernous sinuses and Meckel's cave. Temporal lobes and hippocampal formations are normal in appearance. MR/MR head wo con* [id number] IMPRESSION: 1. No evidence of restricted diffusion to suggest acute ischemia. 2. No suspicious intracranial signal abnormalities. Normal tamayo-white differen tiation. 3. No hemosiderin on the susceptibility weighted images. 4. Normal optic chiasm and pituitary infundibulum. 5. Paranasal sinuses and mastoid air cells are well aerated.
== END 2021-04-14 11:22 | disposition home or self-care (01) ==
PROVIDERS: PCP Nurse Practitioner; Visit Provider Nurse Practitioner
DX: R51.9 Headache, unspecified (principal)
CPT/HCPCS: 70551

== ENCOUNTER → 2021-05-05 07:55 | Outpatient (BNVA) | payer MEDICARE, MEDICAID, SELFPAY | PROVIDERS: PCP Nurse Practitioner; Visit Provider Nurse Practitioner Psychiatric/Mental Health | DX: F41.1 Generalized anxiety disorder (principal); F33.1 Major depressive disorder, recurrent, moderate | CPT/HCPCS: 99214 ==

== ENCOUNTER → 2021-06-30 09:10 | Outpatient (BNVA) | payer MEDICARE, MEDICAID, SELFPAY | PROVIDERS: PCP Nurse Practitioner; Visit Provider Nurse Practitioner Psychiatric/Mental Health | DX: F33.1 Major depressive disorder, recurrent, moderate (principal); F41.1 Generalized anxiety disorder | CPT/HCPCS: 99213 ==

== ENCOUNTER → 2021-07-27 09:06 | Outpatient (BNVA) | payer MEDICARE, MEDICAID, SELFPAY | PROVIDERS: PCP Nurse Practitioner; Visit Provider Nurse Practitioner | DX: Z13.6 Encounter for screening for cardiovascular disorders (principal); F41.1 Generalized anxiety disorder; S06.6X9A Traumatic subarachnoid hemorrhage with loss of consciousness of unspecified duration, initial encounter | CPT/HCPCS: 80053; 80061 ==

== ENCOUNTER → 2021-09-29 08:47 | Outpatient (BNVA) | payer MEDICARE, MEDICAID, SELFPAY | PROVIDERS: PCP Nurse Practitioner; Visit Provider Nurse Practitioner Psychiatric/Mental Health | DX: F33.1 Major depressive disorder, recurrent, moderate (principal); F41.1 Generalized anxiety disorder; Z03.89 Encounter for observation for other suspected diseases and conditions ruled out | CPT/HCPCS: 99214 ==

== ENCOUNTER → 2021-10-04 10:37 | Outpatient (BNVA) | payer MEDICARE, MEDICAID, SELFPAY | PROVIDERS: PCP Nurse Practitioner; Visit Provider Nurse Practitioner Psychiatric/Mental Health | DX: Z03.89 Encounter for observation for other suspected diseases and conditions ruled out (principal); Z79.899 Other long term (current) drug therapy | CPT/HCPCS: 80306 ==

== ENCOUNTER → 2021-10-25 12:59 | Outpatient (BNVA) | payer MEDICARE, MEDICAID, SELFPAY | PROVIDERS: PCP Nurse Practitioner; Visit Provider Nurse Practitioner Psychiatric/Mental Health | DX: F33.1 Major depressive disorder, recurrent, moderate (principal); F41.1 Generalized anxiety disorder; Z03.89 Encounter for observation for other suspected diseases and conditions ruled out; Z79.899 Other long term (current) drug therapy | CPT/HCPCS: 99213 ==

== ENCOUNTER 2021-11-04 04:15 | Inpatient (IN) | payer MEDICARE, MEDICAID, SELFPAY ==
--- NOTE | 2021-11-04 04:24 | ED.C_ITS ---
HPI - Psych General: Chief Complaint: Psychiatric Symptoms Stated Complaint: SI Time Seen by Provider: 11/04/21 04:18 Source: patient Mode of arrival: ambulatory Limitations: no limitations History of Present Illness: HPI Narrative: 36-year-old male states that he has been having increasing anxiety and depression states he feels like he needs to get help he states he just does not feel mentally right and is concerned he may harm himself has had some passing suicidal thoughts denies any plan he voluntarily wants to be admitted to the psychiatric unit. Denies any worsening improving factors. He states he has been taking his meds Associated symptoms: Reports depression and suicidal ideation Review of Systems Const: Denies: fever(s), chills, body aches or change in appetite Eyes: Denies: blurry vision or eye discomfort ENMT: Denies: throat pain or dental pain Card: Denies: chest pain Resp: Denies: dyspnea GI: Denies: abdominal pain, nausea, vomiting or diarrhea : Denies: dysuria Musc: Denies: neck pain or back pain Skin/Breast: Denies: rash Neuro: Denies: headache(s) Psych: Reports: anxiety, depression and suicidal ideation Ron/Lymph: Denies: easy bruising All/Imm: Denies: urticaria PFSH ED PFSH: Medical History Acid reflux 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 Chronic lumbar radiculopathy Cigarette smoker Generalized anxiety disorder Major depressive disorder, recurrent, moderate Major depressive disorder, recurrent, moderate Psychiatric care Surgical History History of hand surgery Right 5th finger ORIF 2014 Family History Family/Other Adopted Unknown family history Social History Smoking and tobacco status: current every day smoker cigarettes Packs smoked per day: 1.5 Years cigarettes smoked: 16 and e-cigarettes E-Cigarette Details: vaporizer device and without nicotine Quit status (tobacco): considering quitting Second hand smoke exposure: No Smoking risk assessment/counseling performed?: Yes Alcohol intake: current Desire information about alcohol rehabilitation?: No Counseling given: Yes Desire information about substance/drug rehabilitation?: No Counseling given: No Adopted: Yes Caregiver/support person: Yes Lives independently: No Household members: family Marital status: Single Number of children: 0 service: No Current occupational status: unemployed History of recent travel: No Current gender identity: Male Physical Exam Const: COMMON NORMALS: no acute distress, patient oriented x3 and healthy appearing HENMT: COMMON NORMALS: normocephalic and atraumatic HEAD & SCALP: normoc ephalic and atraumatic Eye: COMMON NORMALS: Equal, round and reactive pupils present and EOMs intact bilaterally PUPIL: Yes Equal, round and reactive pupils present Neck/C-Spine: COMMON NORMALS: full ROM and supple Chest: COMMONS NORMALS: normal inspection of the chest and normal palpation of entire chest wall Resp: COMMON NORMALS: normal respiratory effort, No retractions, No use of accessory muscles and clear to auscultation bilaterally AUSCULTATION: clear to auscultation bilaterally Cardio: COMMON NORMALS: regular rate, regular rhythm and No murmurs present (Cardio) RATE: regular rate RHYTHM: regular rhythm GI: COMMON NORMALS: Normal to inspection, nondistended, normoactive bowel sounds present, Soft to palpation, non-tender and no masses PALPATION: Yes Soft to palpation Extremity: COMMON NORMALS: normal to inspection and full ROM Neuro: COMMON NORMALS: patient oriented x3, moves all extremities and no focal motor deficits Psych: COMMON NORMALS: mental status grossly normal, Normal thought process present and cooperative ATTITUDE: Yes Withdrawn affect present SPEECH: Yes slow MOOD & AFFECT: Yes depressed mood THOUGHT PROCESS: Normal thought process present THOUGHT CONTENT: Yes Suicidality present Skin: COMMON NORMALS: no rashes or lesions noted and no wounds GENERAL SKIN EXAM: no rashes or lesions noted Course Vital Signs: Vital signs: Vital Signs Temperature 97.4 F L 11/04/21 04:26 Pulse Rate 99 11/04/21 04:26 Respiratory Rate 16 11/04/21 04:26 Blood Pressure 142/101 11/04/21 04:26 Pulse Oximetry 95 11/04/21 04:26 MDM - Psych MDM Narrative: Medical decision making narrative: Patient presents here with suicidal ideation. He is voluntarily wanting help he is medically cleared I spoke to the psychiatrist and will admit to the psychiatric unit. Lab Data: Labs: Lab Results 11/04/21 11/04/21 11/04/21 04:29 04:36 04:36 WBC 21.0 10^3/uL H 10 ^3/uL (4.0-10.0) RBC 4.23 10^6/uL 10^6 /uL (4.1-5.3) Hgb 13.7 g/dL g/dL (11.7-16.6) Hct 39.6 % L % (42.0-52.0) MCV 93.6 fl fl (80-94) MCH 32.4 pg pg (28.0-34.0) MCHC 34.6 g/dL g/dL (30.0-36.0) RDW 11.2 % L % (12.1-15.1) Plt Count 332 10^3/cmm 10^3 /cmm (130-400) MPV 9.7 fL fL (7.4-10.4) Neut % (Auto) 85.1 % % Lymph % (Auto) 8.5 % % [place] % (Auto) 5.8 % % Eos % (Auto) 0.0 % % Baso % (Auto) 0.2 % % Neut # (Auto) 17.93 10^3/uL H 1 0^3/uL (1.8-7.7) Lymph # (Auto) 1.8 10^3/uL 10^3/ uL (0.8-4.8) [place] # (Auto) 1.2 10^3/uL H 10^ 3/uL (0.2-0.9) Eos # (Auto) 0.0 10^3/uL 10^3/ uL (0.0-0.8) Baso # (Auto) 0.0 10^3/uL 10^3/ uL (0.0-0.1) Nucleated RBC % (a uto) 0 % % Nucleated RBCs # 0.0 /100WBC /100W BC Sodium 134 mmol/L L mmol /L (136-145) Potassium 4.0 mmol/L mmol/L (3.5-5.1) Chloride 97 mmol/L L mmol/ L (98-107) Carbon Dioxide 22 mmol/L mmol/L (22-29) Anion Gap 19.0 (5-19) BUN 17 mg/dL mg/dL (6-20) Creatinine 1.2 mg/dL mg/dL (0.7-1.2) GFR Calculation 69.3 mL/min L mL/ min (90-130) Glucose 80 mg/dL mg/dL (65-115) Calculated Osmolal ity 279 mOsm/kg L mOs m/kg (285-295) Calcium 8.8 mg/dL mg/dL (8.5-10.5) Total Bilirubin 0.3 mg/dL mg/dL (0.15-1.2) AST 43 U/L H U/L (0-40) ALT 32 U/L U/L (0-41) Alkaline Phosphata se 45 IU/L IU/L (40-130) Total Protein 7.0 g/dL g/dL (6.6-8.7) Albumin 5.0 g/dL g/dL (3.5-5.2) Globulin 2.0 g/dL g/dL (1.3-4.6) Salicylates 0.4 mg/dL L mg/dL (3-10) Urine Opiates Scre en Negative ng/mL ng /mL (Negative) Acetaminophen < 5.0 ug/mL L ug/ mL (10-30) Ur Barbiturates Sc reen Negative ng/mL ng /mL (Negative) Ur Phencyclidine S crn Negative ng/mL ng /mL (Negative) Ur Amphetamines Sc reen Negative ng/mL ng /mL (Negative) U Benzodiazepines Scrn Negative ng/mL ng /mL (Negative) Urine Cocaine Scre en Negative ng/mL ng /mL (Negative) U Marijuana (THC) Screen Positive ng/mL H ng/mL (Negative) Ethyl Alcohol < 10 mg/dL mg/dL (0-10) Discharge Plan Discharge Patient Disposition: Admitted As Inpatient Clinical Impression: Suicidal ideation, Acute anxiety Condition: Stable Coding Level of Care Code ED Supervisor [employer] for [facility]za Fwd Exam Comprehensive
[2021-11-04 04:26] VITALS: BP 142/101; PULSE 99; RESP 16; TEMP 36.3; O2SAT 95; BMI 22.9
[2021-11-04 04:44] LABS: Basophils % 0.2 %; Hematocrit 39.6 % (42.0-52.0); Hemoglobin 13.7 g/dL (11.7-16.6); Lymphocytes # 1.8 10^3/uL (0.8-4.8); Lymphocytes % 8.5 %; Mean Corpuscular HGB Conc 34.6 g/dL (30.0-36.0); Mean Corpuscular Hemoglobin 32.4 pg (28.0-34.0); Mean Corpuscular Volume 93.6 fl (80-94); Mean Platelet Volume 9.7 fL (7.4-10.4); Monocytes # 1.2 10^3/uL (0.2-0.9); Monocytes % 5.8 %; Neutrophils # 17.93 10^3/uL (1.8-7.7); Neutrophils % 85.1 %; Nucleated Red Blood Cells % 0 %; Platelet Count 332 10^3/cmm (130-400); Red Blood Count 4.23 10^6/uL (4.1-5.3); Red Cell Distribution Width 11.2 % (12.1-15.1)
--- NOTE | 2021-11-04 04:45 | XRR_ITS ---
PROCEDURE INFORMATION: Exam: XR Chest Exam date and time: 11/04/2021 4:45 AM Age: 36 years old Clinical indication: Shortness of breath; Patient HX: SOB TECHNIQUE: Imaging protocol: XR of the chest. Views: 1 view. COMPARISON: CR Chest 1 [place] [id number] 10/11/2019 5:43 PM FINDINGS: Lungs: A shallow breath is been obtained with some crowding of the pulmonary vasculature and exaggeration of the cardiac profile seen. There are some hazy opacities present in the left lower hemithorax that may represent atelectasis although left basilar infiltrate and pneumonitis cannot be entirely excluded. Pleural spaces: Unremarkable. No pleural effusion. No pneumothorax. Heart/Mediastinum: See Lungs finding. Bones/joints: Unremarkable. XR/XR chest 1V portable [id number] IMPRESSION: Hazy opacities in the left lower hemithorax may represent atelectasis although left basilar pneumonitis cannot be excluded.
[2021-11-04 04:48] LABS: Amphetamines Screen Urine Negative (Negative); Barbiturates Screen Urine Negative (Negative); Benzodiazepines Screen Urine Negative (Negative); Cocaine Screen Urine Negative (Negative); Opiate Screen Urine Negative (Negative); PCP Screen Urine Negative (Negative); THC Screen Urine Positive (Negative)
[2021-11-04 05:11] LABS: Alanine Aminotransferase 32 U/L (0-41); Alkaline Phosphatase 45 IU/L (40-130); Aspartate Amino Transferase 43 U/L (0-40); Blood Urea Nitrogen 17 mg/dL (6-20); Calcium 8.8 mg/dL (8.5-10.5); Carbon Dioxide 22 mmol/L (22-29); Chloride 97 mmol/L (98-107); Glomerular Filtration Rate 69.3 mL/min (90-130); Glucose 80 mg/dL (65-115); Osmolality Calculated 279 mOsm/kg (285-295); Salicylate 0.4 mg/dL (3-10); Sodium 134 mmol/L (136-145); Total Bilirubin 0.3 mg/dL (0.15-1.2)
[2021-11-04 05:20] LABS: Acetaminophen < 5.0 ug/mL (10-30); Alcohol Level < 10 mg/dL (0-10)
[2021-11-04 05:22] LABS: Valproic Acid Level 3.5 ug/mL (50-100)
[2021-11-04 05:22] LABS: Add Urine Microscopic? NO; Charge for UA Resulting for Rev
[2021-11-04 05:42] LABS: Bilirubin Urine Neg (Negative); Blood Urine Neg (Negative); Glucose Urine UA Norm (Normal); Ketones Urine Negative (Negative); Leukocyte Esterase Urine Negative (Negative); Nitrate Urine Negative (Negative); Protein Urine Neg (Negative); Urine Appearance Clear (CLEAR); Urine Color Yellow (Yellow); Urobilinogen Urine Neg (Negative); pH Urine 5 (5-7)
[2021-11-04] MEDS: doxycycline 100 mg Tablet PO ×2 (10:27→18:11)
[2021-11-04] MEDS: nicotine 2 mg Gum BUCCAL ×5 (10:28→20:24)
[2021-11-04 14:00] VITALS: BP 138/84; PULSE 99; RESP 16; TEMP 36.6; O2SAT 99
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
[2021-11-04] MEDS: cholecalciferol (vitamin D3) 1,000 unit Tablet 1000 UNIT PO (18:33)
[2021-11-04] MEDS: divalproex ER 500 mg Tablet (24H) PO (20:00)
[2021-11-04] MEDS: hyDROXYzine 25 mg Capsule 50 MG PO (20:37)
[2021-11-04] MEDS: gabapentin 300 mg Capsule PO (20:37)
[2021-11-04 20:59] VITALS: BP 126/75; PULSE 72; RESP 18; O2SAT 95
--- NOTE | 2021-11-05 03:13 | PC.NURSE ---
Patient received vistaril for anxiety. It was effective.
[2021-11-05 06:00] VITALS: BP 126/75; PULSE 72; RESP 18; TEMP 36.6; O2SAT 95
[2021-11-05] MEDS: citalopram 20 mg Tablet 10 MG PO (08:58)
[2021-11-05] MEDS: cholecalciferol (vitamin D3) 1,000 unit Tablet 1000 UNIT PO ×2 (08:58→17:58)
[2021-11-05] MEDS: fenofibrate 145 mg Tablet PO (09:00)
[2021-11-05] MEDS: doxycycline 100 mg Tablet PO ×2 (09:00→17:58)
[2021-11-05] MEDS: nicotine 2 mg Gum BUCCAL ×4 (09:00→20:54)
[2021-11-05] MEDS: gabapentin 300 mg Capsule PO ×3 (09:01→21:03)
[2021-11-05] MEDS: CLONazepam 0.5 mg Tablet PO ×2 (09:54→23:40)
[2021-11-05 14:00] VITALS: BP 111/64; PULSE 77; RESP 17; TEMP 36.9; O2SAT 95
--- NOTE | 2021-11-05 14:40 | P.NPUPN_ITS ---
Subjective NPU Subjective: Interval history: Patient presents today reporting that he is happy that he was able to come to the hospital and try to get himself back on track. We discussed the risks, benefits and alternatives of starting/increasing his Celexa to 20 mg daily tomorrow. We discussed the likelihood of discharge in the next 48 hours. We discussed his Depakote level but also that it was not a trough in the chart this life insurance underwriter that he had been taking it regularly. Mental Status Exam MSE Comments: This is a well-nourished well-developed white male in hospital scrubs with adequate grooming and eye contact. No abnormal movements except for mild psychomotor retardation. Cooperative with exam in no acute distress. Speech was decreased volume normal rate. Mood described as a little better, affect congruent. Thought process organized. Thought content: Patient denied any suicidal or homicidal ideations, there were no delusions reported or noted, he denied any auditory or visual hallucinations. Attention and concentration were intact and memory was reliable but none were formally tested. He is alert and oriented x3. Insight and judgment are fair and impulse control is limited. 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 1. Continue current medication. We will increase Celexa to 20 mg p.o. every morning 2. Encourage individual, group and milieu therapy. 3. Continue every 15 minute checks for safety. 4. Encourage sober living treatment after discharge at the highest level of care to which he is willing to commit. Involuntary Hold Information 96 Hour Hold: 96 Hour Involuntary Admission: No Attestations NPU Medical Necessity Statement*: Inpatient psychiatric hospitalization is medically necessary and the clinically appropriate intervention at this time. We will monitor medications and make changes as indicated. Likely length of stay 1-3 days. Coding Level of Care Code Acute Grade Foreman for Iza Owens
[2021-11-05] MEDS: acetaminophen 325 mg Tablet 650 MG PO (16:52)
[2021-11-05] MEDS: divalproex ER 500 mg Tablet (24H) PO (20:54)
[2021-11-05] MEDS: hyDROXYzine 25 mg Capsule 50 MG PO (21:02)
[2021-11-05] MEDS: trazodone 50 mg Tablet PO (21:02)
[2021-11-05 21:13] VITALS: BP 123/78; PULSE 90; RESP 17; TEMP 36.9; O2SAT 93
--- NOTE | 2021-11-05 23:40 | PC.NURSE ---
PRN Administration: Patient c/o having trouble sleeping. Requested PRN Clonazepam 0.5 mg PO, given as ordered.
[2021-11-06 06:00] VITALS: BP 118/72; PULSE 67; RESP 20; TEMP 36.3; O2SAT 96; BMI 22.9
[2021-11-06] MEDS: gabapentin 300 mg Capsule PO ×3 (09:06→20:41)
[2021-11-06] MEDS: fenofibrate 145 mg Tablet PO (09:06)
[2021-11-06] MEDS: doxycycline 100 mg Tablet PO ×2 (09:06→17:47)
[2021-11-06] MEDS: cholecalciferol (vitamin D3) 1,000 unit Tablet 1000 UNIT PO ×2 (09:06→17:47)
[2021-11-06] MEDS: citalopram 20 mg Tablet 10 MG PO (09:06)
[2021-11-06] MEDS: CLONazepam 0.5 mg Tablet PO ×2 (10:02→20:42)
[2021-11-06] MEDS: magnesium oxide 400 mg tablet 200 MG PO (10:18)
[2021-11-06] MEDS: nicotine 2 mg Gum BUCCAL ×3 (10:39→20:41)
--- NOTE | 2021-11-06 10:39 | PC.NURSE ---
Medication- PRN Klonopin given at 1002 for c/o anxiety. Reports that medication was effective. Mag Ox 200 mg added to MAR. Give at 1030. Nicotine gum given PRN at 1039.
[2021-11-06 14:00] VITALS: BP 111/68; PULSE 77; RESP 18; TEMP 36.8; O2SAT 93
[2021-11-06] MEDS: acetaminophen 325 mg Tablet 650 MG PO (18:34)
--- NOTE | 2021-11-06 19:14 | W.PM.NPUPNS ---
Subjective NPU Subjective: Interval history: Patient presents today reporting that he is feeling better and feeling optimistic about getting himself back on track recovery and overall. He reported an openness to see how the Celexa does but he does report he has felt like when the dose has been increased he has gotten more anxious not less. We discussed him trying the increased dose and knowing that he could go back to a half a tablet if there was a problem. Mental Status Exam MSE Comments: This is a well-nourished well-developed white male in hospital scrubs with adequate grooming and eye contact. No abnormal movements. Cooperative with exam in no acute distress. Speech was more normal rate and volume. Mood described as better, affect congruent. Thought process organized. Thought content: Patient denied any suicidal or homicidal ideations, there were no delusions reported or noted, he denied any auditory or visual hallucinations. Attention and concentration were intact and memory was reliable but none were formally tested. He is alert and oriented x3. Insight and judgment are fair and impulse control is limited. 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 1. Continue current medication. 2. Encourage individual, group and milieu therapy. 3. Continue every 15 minute checks for safety. 4. Encourage sober living treatment after discharge at the highest level of care to which he is willing to commit. Involuntary Hold Information 96 Hour Hold: 96 Hour Involuntary Admission: No Attestations NPU Medical Necessity Statement*: Inpatient psychiatric hospitalization is medically necessary and the clinically appropriate intervention at this time. We will monitor medications and make changes as indicated. Likely length of stay 1-2 days. Coding Level of Care Code Acute Flatbed Press Operator for Iza Owens
[2021-11-06 20:25] VITALS: BP 128/74; PULSE 78; RESP 17; TEMP 36.8; O2SAT 98
[2021-11-06] MEDS: divalproex ER 500 mg Tablet (24H) PO (20:42)
--- NOTE | 2021-11-06 20:48 | PC.NURSE ---
Patient with c/o anxiety. Anxious affect. Klonopin 0.5 mg po given for this.
[2021-11-07 06:00] VITALS: BP 119/74; PULSE 67; RESP 18; TEMP 36.5; O2SAT 96
[2021-11-07] MEDS: nicotine 2 mg Gum BUCCAL ×3 (07:40→14:57)
[2021-11-07] MEDS: gabapentin 300 mg Capsule PO ×2 (08:53→14:57)
[2021-11-07] MEDS: doxycycline 100 mg Tablet PO (08:53)
[2021-11-07] MEDS: magnesium oxide 400 mg tablet 200 MG PO (08:53)
[2021-11-07] MEDS: fenofibrate 145 mg Tablet PO (08:53)
[2021-11-07] MEDS: citalopram 20 mg Tablet PO (08:53)
[2021-11-07] MEDS: cholecalciferol (vitamin D3) 1,000 unit Tablet 1000 UNIT PO (08:53)
[2021-11-07] MEDS: CLONazepam 0.5 mg Tablet PO (08:56)
--- NOTE | 2021-11-07 13:09 | NPU.GN ---
[facility] Group Topic: Group Discussion/ Choices General Mood of Group: Estevan did attend and participate in group. He was social, well groomed, and seemed to be mentally stable.
--- NOTE | 2021-11-07 13:52 | DCPLANNER ---
IMM completed with pt on 11/07/21 @ 5475. Pt was given a copy of rights and stated he understood his rights.
[2021-11-07 14:00] VITALS: BP 126/83; PULSE 84; RESP 20; TEMP 36.8; O2SAT 97
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
[2021-11-07 15:55] VITALS: BP 126/83; PULSE 84; RESP 20; TEMP 36.8; O2SAT 97
== END 2021-11-07 16:30 | disposition home or self-care (01) | DRG 882 ==
LOC: ER 04:32 → NP 05:33
PROVIDERS: Admitting Provider Psychiatry & Neurology Psychiatry; Emergency Provider Emergency Medicine; PCP Nurse Practitioner; Visit Provider Psychiatry & Neurology Psychiatry
DX: F43.25 Adjustment disorder with mixed disturbance of emotions and conduct (principal); F33.9 Major depressive disorder, recurrent, unspecified; R45.851 Suicidal ideations; F43.0 Acute stress reaction; F20.9 Schizophrenia, unspecified; F41.1 Generalized anxiety disorder; F17.210 Nicotine dependence, cigarettes, uncomplicated; F12.90 Cannabis use, unspecified, uncomplicated
CPT/HCPCS: 36415; 71045; 80053; 80164; 80306; 80307; 81003; 85025; 97150; 97165; 99285

== ENCOUNTER → 2021-12-20 07:47 | Outpatient (BNVA) | payer MEDICARE, MEDICAID, SELFPAY | PROVIDERS: PCP Nurse Practitioner; Visit Provider Nurse Practitioner Psychiatric/Mental Health | DX: F33.1 Major depressive disorder, recurrent, moderate (principal); F41.1 Generalized anxiety disorder; Z03.89 Encounter for observation for other suspected diseases and conditions ruled out | CPT/HCPCS: 99214 ==

== ENCOUNTER → 2021-12-26 10:39 | Outpatient (BNVA) | payer MEDICARE, MEDICAID, SELFPAY | PROVIDERS: PCP Nurse Practitioner; Visit Provider Nurse Practitioner Psychiatric/Mental Health | DX: Z79.899 Other long term (current) drug therapy (principal) | CPT/HCPCS: 80307 ==

== ENCOUNTER → 2022-01-27 11:38 | Outpatient (BNVA) | payer MEDICARE, MEDICAID, SELFPAY | PROVIDERS: PCP Nurse Practitioner; Visit Provider Nurse Practitioner | DX: E78.1 Pure hyperglyceridemia (principal); M54.16 Radiculopathy, lumbar region | CPT/HCPCS: 80053; 80061; 82607 ==

== ENCOUNTER → 2022-01-31 07:53 | Outpatient (BNVA) | payer MEDICARE, MEDICAID, SELFPAY | PROVIDERS: PCP Nurse Practitioner; Visit Provider Nurse Practitioner Psychiatric/Mental Health | DX: F33.1 Major depressive disorder, recurrent, moderate (principal); F41.1 Generalized anxiety disorder; Z79.899 Other long term (current) drug therapy; Z03.89 Encounter for observation for other suspected diseases and conditions ruled out | CPT/HCPCS: 80306; 99214 ==

== ENCOUNTER → 2022-02-06 15:24 | Outpatient (BNVA) | payer MEDICARE, MEDICAID, SELFPAY | PROVIDERS: PCP Nurse Practitioner; Visit Provider Nurse Practitioner | DX: R74.8 Abnormal levels of other serum enzymes (principal) | CPT/HCPCS: 80074; 84450; 84460 ==

== ENCOUNTER 2022-04-07 09:12 | Outpatient (CLI) | payer MEDICARE, MEDICAID, SELFPAY ==
--- NOTE | 2022-04-07 09:30 | US_ITS ---
WS: [id number] Exam: US liver [id number] Date/Time of Exam: 04/07/2022 9:36 AM Reason For Exam: R74.8 - Abnormal levels of other serum enzymes The liver demonstrates no evidence of mass or nodule. No sign of hepatic enlargement. The liver measu res 13.25 cm at greatest dimension. The gallbladder was normal in appearance. The pancreas was unrema rkable. The common bile duct is not dilated and measures 2.4 mm at greatest diameter. Hepatic Doppler was unremarkable. The IVC was patent. The abdominal aorta is normal in caliber. Normal-appearing rig ht kidney measures 10.8 x 4.4 x 5.1 cm. US/US liver [id number] IMPRESSION: 1. Sonographically normal-appearing liver and gallbladder.
== END 2022-04-07 09:13 | disposition home or self-care (01) ==
LOC: RAD 09:12
PROVIDERS: PCP Nurse Practitioner; Visit Provider Nurse Practitioner
DX: R74.8 Abnormal levels of other serum enzymes (principal)
CPT/HCPCS: 76705

== ENCOUNTER → 2022-05-08 10:29 | Outpatient (BNVA) | payer MEDICARE, MEDICAID, SELFPAY | PROVIDERS: PCP Nurse Practitioner; Visit Provider Nurse Practitioner Family | DX: R10.9 Unspecified abdominal pain (principal); K59.00 Constipation, unspecified | CPT/HCPCS: 74018; 80053; 84443; 85025 ==

== ENCOUNTER → 2022-08-07 11:12 | Outpatient (BNVA) | payer MEDICARE, MEDICAID, SELFPAY | PROVIDERS: PCP Nurse Practitioner; Visit Provider Nurse Practitioner | DX: E78.1 Pure hyperglyceridemia (principal); E55.9 Vitamin D deficiency, unspecified; M54.16 Radiculopathy, lumbar region | CPT/HCPCS: 80053; 80061; 82306; 84443 ==

== ENCOUNTER → 2022-10-05 10:47 | Outpatient (BNVA) | payer MEDICARE, MEDICAID, OTHER, SELFPAY | PROVIDERS: PCP Nurse Practitioner; Visit Provider Nurse Practitioner Psychiatric/Mental Health | DX: Z79.899 Other long term (current) drug therapy (principal); Z51.81 Encounter for therapeutic drug level monitoring | CPT/HCPCS: 80053; 80164 ==

== ENCOUNTER → 2023-04-03 14:31 | Outpatient (BNVA) | payer MEDICARE, MEDICAID, SELFPAY | PROVIDERS: PCP Nurse Practitioner; Visit Provider Nurse Practitioner Psychiatric/Mental Health | DX: Z03.89 Encounter for observation for other suspected diseases and conditions ruled out (principal); Z79.899 Other long term (current) drug therapy | CPT/HCPCS: 80306 ==

== ENCOUNTER → 2023-04-24 15:01 | Outpatient (BNVA) | payer MEDICARE, MEDICAID, SELFPAY | PROVIDERS: PCP Nurse Practitioner; Visit Provider Nurse Practitioner Psychiatric/Mental Health | DX: Z79.899 Other long term (current) drug therapy (principal) | CPT/HCPCS: 80053; 80164; 85025 ==

== ENCOUNTER → 2023-05-09 10:58 | Outpatient (BNVA) | payer MEDICARE, SELFPAY | PROVIDERS: PCP Nurse Practitioner; Visit Provider Nurse Practitioner | DX: N39.43 Post-void dribbling (principal) | CPT/HCPCS: 81000 ==

== ENCOUNTER 2023-05-17 07:22 | Outpatient (CLI) | payer MEDICARE, MEDICAID, SELFPAY ==
--- NOTE | 2023-05-17 07:45 | US_ITS ---
WS: [id number] RENAL ULTRASOUND HISTORY: N39.43 - Post-void dribbling COMPARISON: 04/07/2022 TECHNIQUE: 2-D and color Doppler imaging of the kidney submitted. Right kidney: 10.7 cm x 6.3 cm x 4.6 cm. Cortex: 1.4 cm Normal echogenicity with no hydronephrosis or mass. Left kidney: 10.9 cm x 5.4 cm x 4.7 cm. Cortex: 1.5 cm Normal echogenicity with no hydronephrosis or mass. Aorta: Normal. Urinary Bladder: Normal distention. US/US renal BI* [id number] IMPRESSION: Normal renal ultrasound.
== END 2023-05-17 07:23 | disposition home or self-care (01) ==
PROVIDERS: PCP Nurse Practitioner; Visit Provider Nurse Practitioner
DX: N39.43 Post-void dribbling (principal)
CPT/HCPCS: 76770

== ENCOUNTER → 2023-07-24 11:05 | Outpatient (BNVA) | payer MEDICARE, SELFPAY | PROVIDERS: PCP Nurse Practitioner; Visit Provider Nurse Practitioner Psychiatric/Mental Health | DX: Z79.899 Other long term (current) drug therapy (principal) | CPT/HCPCS: 80306 ==

== ENCOUNTER → 2023-08-01 11:03 | Outpatient (BNVA) | payer MEDICARE, SELFPAY | PROVIDERS: PCP Nurse Practitioner; Visit Provider Nurse Practitioner | DX: E66.9 Obesity, unspecified (principal); E78.1 Pure hyperglyceridemia; M79.10 Myalgia, unspecified site | CPT/HCPCS: 80053; 80061 ==

== ENCOUNTER → 2024-01-28 10:12 | Outpatient (BNVA) | payer MEDICARE, MEDICAID, SELFPAY | PROVIDERS: PCP Nurse Practitioner; Visit Provider Nurse Practitioner | DX: E78.1 Pure hyperglyceridemia (principal); E66.9 Obesity, unspecified; E55.9 Vitamin D deficiency, unspecified | CPT/HCPCS: 80053; 80061; 80164; 82306; 84443 ==

== ENCOUNTER → 2024-04-14 14:38 | Outpatient (BNVA) | payer MEDICARE, OTHER, SELFPAY | PROVIDERS: PCP Nurse Practitioner; Visit Provider Nurse Practitioner Psychiatric/Mental Health | DX: Z79.899 Other long term (current) drug therapy (principal) | CPT/HCPCS: 80306 ==

== ENCOUNTER → 2024-06-11 16:31 | Outpatient (BNVA) | payer MEDICARE, MEDICAID, SELFPAY | PROVIDERS: PCP Nurse Practitioner; Visit Provider Nurse Practitioner | DX: R39.9 Unspecified symptoms and signs involving the genitourinary system (principal) | CPT/HCPCS: 81000 ==

== ENCOUNTER → 2024-07-07 13:31 | Outpatient (BNVA) | payer MEDICARE, MEDICAID, SELFPAY | PROVIDERS: PCP Nurse Practitioner; Visit Provider Nurse Practitioner | DX: R10.2 Pelvic and perineal pain (principal); E78.1 Pure hyperglyceridemia | CPT/HCPCS: 74018; 80053; 80061 ==

== ENCOUNTER → 2025-01-08 10:47 | Outpatient (BNVA) | payer MEDICARE, OTHER, SELFPAY | PROVIDERS: PCP Nurse Practitioner; Visit Provider Nurse Practitioner | DX: E78.1 Pure hyperglyceridemia (principal) | CPT/HCPCS: 80053; 80061 ==

== ENCOUNTER → 2025-02-05 11:46 | Outpatient (BNVA) | payer MEDICARE, OTHER, SELFPAY | PROVIDERS: PCP Nurse Practitioner; Visit Provider Nurse Practitioner Psychiatric/Mental Health | DX: Z51.81 Encounter for therapeutic drug level monitoring (principal) | CPT/HCPCS: 80164 ==

== ENCOUNTER → 2025-07-02 12:04 | Outpatient (BNVA) | payer MEDICARE, MEDICAID, SELFPAY | PROVIDERS: PCP Nurse Practitioner; Visit Provider Nurse Practitioner | DX: E78.1 Pure hyperglyceridemia (principal); E55.9 Vitamin D deficiency, unspecified | CPT/HCPCS: 80053; 80061; 82607; 84443 ==

== ENCOUNTER 2025-09-25 16:49 | Emergency (ER) | payer MEDICARE, MEDICAID, SELFPAY ==
--- OUTSIDE RECORDS SUMMARY | 2014-09-22 02:16 | XMS_ITS | Continuity of Care Document ---
Author Organization [facility] Address [address] [place] [address] Phone Care Team Providers Care Shower Attendant Name Role Phone Unavailable Unavailable Unavailable Allergies, Adverse Reactions, Alerts Substance Reaction Status Criticality HALOPERIDOL LACTATE Active No Infor mation haloperidol Active No Information shellfish derived Active No Informa tion Medications Medication Instructions Dosage Effective Dates (start - stop) Status Comments atenolol 50 mg tablet take 1 tablet (50MG) by oral route 2 times every day 50 MG - Active omeprazole 40 mg capsule,delayed release take 1 capsule (40MG) by oral route every day before a meal 40 MG - Active Lopid 600 mg tablet take 1 tablet (600MG) by oral route 2 times every day 30 minutes before morning and evening meal 600 MG - Active Klonopin 1 mg tablet take 1 tablet (1MG) by oral route every 6 hours as needed 1 MG - Active Ativan 2 mg/mL Injection inject 1 milliliter (2MG) by intravenous route every day as needed 2 MG - Active Klonopin 0.5 mg tablet take 1 tablet (0.5MG) by oral route 3 times every day 0.5 MG - Active Zocor 10 mg tablet take 1 tablet (10MG) by oral route every day at bedtime 10 MG - Active risperidone 3 mg tablet take 1 tablet (3MG) by oral route every bedtime 3 MG - Active Milk of Magnesia 400 mg/5 mL Oral Susp take 30 milliliter by oral route every day as needed, followed by a full glass (8 oz) of liquid 30 milliliter - Active acetaminophen 500 mg tablet take 1 Tablet (500MG) by oral route every 4 hours as needed 500 MG - Active acetaminophen 325 mg tablet take 1 Tablet (325MG) by oral route every 4 hours as needed 325 MG - Active Guaifenesin DM 10 mg-100 mg/5 mL Syrup take 5 milliliter by oral route every 4 hours as needed 5 milliliter - Active ibuprofen 200 mg tablet take 2 Tablet (400MG) by oral route every 4 hours as needed with food 400 MG - Active Maalox Advanced 200 mg-200 mg-20 mg/5 mL Oral Susp take 30 milliliter by oral route every 4 hours as needed 30 milliliter - Active Fish Oil 1,000 mg capsule take 1 Capsule by Oral route every day - Active hydroxyzine pamoate 50 mg capsule take 1 capsule (50MG) by oral route every morning 50 MG - Active Vistaril 50 mg capsule take 2 Capsule (100MG) by oral route every evening 100 MG - Active zolpidem 10 mg tablet take 1 tablet (10MG) by oral route every day as needed at bedtime 10 MG - Active Procedures Procedure Date NURSING FAC CARE, [facility] NURSING [facility] CARE, [facility], [facility], [facility], [facility], [facility] NUR[facility] FAC CARE, [facility] NURSING [facility]ARE, [facility] Advance Directives Directive Yes / No Effective Date File Name No Information Encounters Encounter Description Practice Location Reason(s) For Visit Diagnoses Date Provider Providers Copied on Encounter NURSING FAC CARE, [facility], [address] [place] [address], [id number], tel:[phone] [facility] Chronic conditions (chief complaint) Antisocial personality disorderHTN (hypertension) Alcohol abuse w/alcohol-thompson logan psychotic disorderObesit yCessation of smoking 4 No Information NUR[facility], [address], [address], tel:[phone] [facility] Congestive heart failure (chief complaint) Bipolar I disorder, single manic episode, unspecifiedHTN (hypertension) OverweightCess ation of smoking 4 No Information [facility], [address], [address], [place] tel:[phone] [facility] Chronic conditions (chief complaint) Obesity 4 No Information NURSING FAC CARE, [facility], [address] [place] [address], [address], [place] tel:[phone] [facility] chronic conditions (chief complaint) Bipolar I disorder, single manic episode, unspecifiedSim ple type schizophrenia, unspecified stateAcute alcoholic intoxication in alcoholism, unspecified drinking behaviorOther, mixed, or unspecified drug abuse, unspecified useCHRONIC CLUSTER HEADACHE 4 No Information NURSING FAC CARE, [facility], [address] [place] [address], [address], [place] tel:[phone] [facility] chronic conditions (chief complaint) Bipolar I disorder, single manic episode, unspecifiedOth er and unspecified hyperlipidemia Simple type schizophrenia, unspecified stateAntisocia l personality disorderAcute alcoholic intoxication in alcoholism, unspecified drinking behaviorOther, mixed, or unspecified drug abuse, unspecified use 4 No Information NURSING FAC CARE, [facility], [address] [place] [address], [address], [place] tel:[phone] [facility] chronic conditions (chief complaint)h ypertension (chief complaint) Acute alcoholic intoxication in alcoholism, unspecAntisoci al personality disorderBipola r 1 disorderBipola r I disorder, single manic episode, unspecifHTN (hypertension) 3 No Information [facility], [address] [place] [address], [address], [place] tel:[phone] [facility] No Information 3 No Information NURSING FAC CARE, [facility], [address] [place] [address], [address], [place] tel:[phone] [facility] chronic conditions (chief complaint)h ypertension (chief complaint) HTN (hypertension) Insomnia, OtherGERDDepre ssionOther, mixed, or unspecified drug abuse, unspecified useAcute alcoholic intoxication in alcoholism, unspecified drinking behaviorAntiso cial personality disorder 3 No Information [facility], [address] [place] [address], [address], tel:[phone] *[facility] Bipolar I disorder, single manic episode, unspecifiedOth er and unspecified hyperlipidemia Simple type schizophrenia, unspecified stateAntisocia l personality disorderAcute alcoholic intoxication in alcoholism, unspecified drinking behaviorOther, mixed, or unspecified drug abuse, unspecified useDepressionC HRONIC CLUSTER HEADACHEGERDIn somnia, Other 3 No Information NURSING FAC CARE, [facility], [address] [place], [address], tel:[phone] [facility] chronic conditions (chief complaint) HTN (hypertension) Bipolar 1 disorderGERD (gastroesophag eal reflux disease)Hyperl ipidemiaAlcoho l abuse w/alcohol-thompson logan psychotic disorder 3 No Information Family History Family Member Type Diagnosis Age At Onset No Information Immunizations Vaccine Date Status Comments flu (split) (3 yrs or older) administered Source: Other Provider pneumo (2 yrs or older) (PPV23) administe red Source: Other Provider Payers Payer name Insurance type Covered constitution party ID Authoriza tion(s) No Information Social History Type Description Quantity Date Captured Comments Alcohol Use Details Unknown Caffeine Use Details Unknown Tobacco Use Status Smoking Status Current every day smoker Smoking Tobacco Use Details Cigarette: No Details Available Cigarette: No Details Available Sex Male Vital Signs Date / Time: Height Weight BMI Pulse Rate Blood Pressure Temperature Respiratory Rate Body Surface Area Head Circumference Head Circ. Percentile Wt./Beau. Percentile BMI percentile Pulse Ox Inhaled Ox 8:17 AM 70.00 in 98.883 kg (218.00 lbs) 31.2 8 kg/m eter (2) 60 /min 150/80 mm[Hg] 97.50 F 16 /min 2.21 meter(2) Chief Complaint And Reason For Visit From encounter dated '09/22/2014 08:16'. Chronic conditions (chief complaint) Reason For Referral Reason For Referral No Information Plan Of Treatment Date Type Action Status Goal Dietary management education , guidance, and counseling completed Goal Dietary management education , guidance, and counseling completed Goal Dietary management education , guidance, and counseling completed History Of Present Illness Encounter Date Complaint History Of Prese nt Illness Chronic conditions Congestive heart failure Chronic conditions chronic conditions chronic conditions chronic conditions hypertension The symptoms beg an 3 weeks ago. He states the symptoms are poorly controlled. Well increase atenolol to 50 mg bid. chronic conditions hypertension chronic conditions Functional Status Date Functional Assessmen t No Information Instructions Date Instruction Additional Infor mation Dietary management e ducation, guidance, and counseling Related to Obesity, unspecified Dietary management e ducation, guidance, and counseling Related to Overweight Dietary management e ducation, guidance, and counseling Related to Obesity, unspecified Assessments Type Assessment Date assessment Antisocial personality disorder assessment HTN (hypertension) assessment Alcohol abuse w/alcohol-induced psychotic disorder assessment Obesity assessment Cessation of smoking Patient Care Teams Name Effective Dates (start - stop) Status Members No Information
[2025-09-25 16:54] VITALS: BP 127/79; PULSE 86; RESP 19; TEMP 37; O2SAT 98; BMI 27.2
--- NOTE | 2025-09-25 17:10 | ED_ITS ---
HPI - Back Pain/Injury General: Chief Complaint: Back Pain/Injury Stated Complaint: Lower Back Pain Time Seen by Provider: 09/25/25 16:58 Source: patient Mode of arrival: ambulatory Limitations: no limitations History of Present Illness: Patient is a 40-year-old male presents to ED today with a complaint of pain to the left side of his lower back that he noticed a few days ago after he was getting out of bed. No injury or trauma. He does state he has a history of lower back pain and it sometimes radiates into his left leg. He has seen his primary care provider for this complaint several times. He is not complaining of any leg weakness. Denies saddle anesthesia or bowel or bladder incontinence/retention. Denies pain radiating into his abdomen. No urinary symptoms. No history of urolithiasis. MD elicited complaint: back pain Pertinent past history: prior back pain Onset (ago): day(s) Timing: constant Severity: moderate Location: left lower back Radiation: none Exacerbating factors: movement Relieving factors: none Associated symptoms: Reports no associated symptoms; Deny abdominal pain, difficulty walking, fever(s), hematuria, nausea or vomiting Treatments prior to arrival: NSAIDS and other (icyhot) Work related injury: No Related Data Home Medications ?Medication ?Instructions ?Recorded ?Confirmed magnesium 200 mg tablet 200 mg PO DAILY 11/26/20 Previous Rx's ?Medication ?Instructions ?Recorded fenofibrate nanocrystallized 145 145 mg PO DAILY #30 t abs 07/02/25 mg tablet (Tricor) citalopram 20 mg tablet 20 mg PO DAILY #30 tabs 07/31 11/22 divalproex 250 mg tablet,extended 250 mg PO .q hs #30 tabs 08/28/25 release 24 hr divalproex 500 mg tablet,extended 500 mg PO .HS #30 ta bs 08/28/25 release 24 hr clonazepam 0.5 mg tablet 0.5 mg PO BID PRN panic/anxi ety 09/10/25 #60 tabs cyclobenzaprine 10 mg tablet 10 mg PO TID #14 tabs methylprednisolone 4 mg tablets in See Rx Instructions PO .COMPLEX 09/25/25 a dose pack (Medrol (Chance)) #21 ea Allergies Allergy/AdvReac Type Severity Reaction Status Date / Time haloperidol (From Haldol) Allergy Unknown Verified 09/10/25 12:57 lamotrigine (From Lamictal) Allergy Unknown Verified 09/10/25 12:57 shellfish derived Allergy Unknown Verified 09/10/25 12:57 chlorzoxazone AdvReac Severe ADR-Anxiety Verified 09/10/25 12:57 Review of Systems Const: Denies: fever(s) Card: Denies: chest pain Resp: Denies: dyspnea GI: Denies: abdominal pain, nausea or vomiting : Denies: flank pain or hematuria Musc: Reports: back pain; Denies: neck pain, extremity pain, extremity swelling, joint pain, joint swelling or joint redness Skin/Breast: Denies: rash Neuro: Denies: numbness in extremities, weakness in extremities, sensory changes or difficulty walking PFSH ED PFSH: Medical History Insomnia Obesity (BMI 30-39.9) Major depressive disorder, recurrent, in partial remission Major depressive disorder in partial remission 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 Psychiatric care Chronic lumbar radiculopathy Cigarette smoker Major depressive disorder, recurrent, moderate Generalized anxiety disorder Major depressive disorder, recurrent, moderate 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 Acid reflux Surgical History History of hand surgery Right 5th finger ORIF 2013 Family History Family/Other Adopted Unknown family history Social History Smoking and tobacco/nicotine status: current every day tobacco/nicotine user cigarettes Packs smoked per day: 1.5 Years cigarettes smoked: 16 and e-ci garettes E-Cigarette Details: vaporizer device and without nicotine Quit status (tobacco/nicotine): considering quitting Second hand smoke exposure: No Alcohol intake: current Substance/Drug Use: former Former substance use details: meth Adopted: Yes Caregiver/support person: Yes Lives independently: No Household members: family Marital status: Single Number of children: 0 service: No Current occupational status: unemployed Do you think of yourself as: Straight/Heterosexual Current gender identity: Male Physical Exam Const: COMMON NORMALS: no acute distress, average body habitus, patient oriented x3, no limitations, healthy appearing, alert and well nourished GENERAL APPEARANCE: cooperative Neck/C-Spine: COMMON NORMALS: full ROM and no meningeal signs CERVICAL SPINE: No Lhermitte's sign positive Resp: COMMON NORMALS: normal respiratory effort and clear to auscultation bilaterally AUSCULTATION: clear to auscultation bilaterally Cardio: COMMON NORMALS: regular rate and regular rhythm RATE: regular rate RHYTHM: regular rhythm GI: COMMON NORMALS: Normal to inspection, nondistended, normoactive bowel sounds present, Soft to palpation, non-tender, No hepatosplenomegaly present and no masses PALPATION: Yes Soft to palpation and Yes No hepatosplenomegaly present : COMMON NORMALS: Yes no CVA tenderness BLADDER/KIDNEY EXAM: Yes no CVA tenderness Back/Pelvis: COMMON NORMALS: no CVA tenderness, thoracic and lumbar spine normal to inspection, no thoracic nor lumbar tenderness, thoraco-lumbar ROM normal and straight leg raise negative bilaterally LUMBAR SPINE/LOWER BACK: Yes paraspinal muscle tenderness Lumbar paraspinal muscle tenderness: left, No mass present and Yes straight leg raise negative bilaterally PELVIS: Yes buttocks normal and No sciatic notch tenderness SACROILIAC JOINTS: Yes SI joints normal SACRUM: no tenderness COCCYX: no tenderness Extremity: COMMON NORMALS: capillary refill normal, no clubbing, cyanosis or edema, no calf tenderness and no pedal edema GENERAL: Yes normal exam except as noted Neuro: COMMON NORMALS: patient oriented x3, moves all extremities, no focal motor deficits, no sensory deficits noted and gait normal SENSORIUM/ORIENTATION: Yes alert MENINGEAL SIGNS: Yes no meningeal signs Skin: COMMON NORMALS: no rashes or lesions noted GENERAL SKIN EXAM: no rashes or lesions noted Course Vital Signs: Vital signs: Vital Signs Temperature 98.6 F 09/25/25 16:54 Pulse Rate 72 09/25/25 17:58 Respiratory Rate 19 H 09/25/25 16:54 Blood Pressure 127/79 09/25/25 16:54 Pulse Oximetry 99 09/25/25 17:58 Oxygen Delivery Me thod Room Air 09/25/25 16:54 MDM - Back Pain/Injury Medical Decision Making Patient here for left-sided lower back pain. No direct injury or trauma. No acute neurologic deficits. 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 Other differentials considered including discitis/epidural abscess, renal colic, urolithiasis, pyelonephritis, among others. These were thought to be unlikely based on history and physical examination. Patient does have a history of similar back pains. He was given IM Norflex, Dexamethasone, Toradol here in the emergency department. Will have him continue anti-inflammatories at home and place him on a steroid taper and muscle relaxers. Recommend follow-up with primary care in 1 to 2 weeks. Return ED precautions discussed. Differential Diagnosis Likely lumbar radiculopathy, strain of lumbar region and pyelonephritis Medical Records I reviewed the patient's medical records. No radiology studies performed this visit Discharge Plan Discharge Patient Disposition: Home Clinical Impression: Musculoskeletal back pain Condition: Stable Prescriptions: New methylprednisolone [Medrol (Chance)] 4 mg tablets,dose pack See Rx Instructions .ROUTE .COMPLEX Qty: 21 0RF Rx Instructions: orally per package directions cyclobenzaprine 10 mg tablet 10 mg PO TID Qty: 14 0RF No Action magnesium 200 mg tablet 200 mg PO DAILY fenofibrate nanocrystallized [Tricor] 145 mg tablet 145 mg PO DAILY Qty: 30 5RF clonazepam 0.5 mg tablet 0.5 mg PO BID PRN (Reason: panic/anxiety) Qty: 60 2RF Rx Instructions: Take one tablet twice a day, if needed for panic/anxiety symptoms divalproex 500 mg tablet extended release 24 hr 500 mg PO .HS Qty: 30 3RF Rx Instructions: take one tablet daily by mouth at bedtime with the 250 mg tablet divalproex 250 mg tablet extended release 24 hr 250 mg PO .q hs Qty: 30 3RF Rx Instructions: Take one tablet daily at bedtime with the 500 mg tablet citalopram 20 mg tablet 20 mg PO DAILY Qty: 30 3RF Rx Instructions: Take one tablet daily Discharge Orders: Discharge ED (Routine); Ordered 09/25/25 Ordered By: Maria De Jesus Mayer Referrals: Melissa Prather FNP-C [Primary Care Provider, Family Practice] Patient Instructions: Muscle Spasm (ED), Patient Portal & Roni Instructions Activity Restrictions/Additional Instructions: You may begin the steroids and muscle relaxers prescribed to you today. I would like you to continue an anti-inflammatory such as 800 mg of ibuprofen every 6-8 hours. You may continue your IcyHot and topical medications. As we discussed please follow-up with primary care in 1 to 2 weeks if symptoms are not improving. You may return to the emergency department at anytime for any further concerns you may have. 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
[2025-09-25] MEDS: orphenadrine 30 mg/mL Inj 2 mL 60 MG IM (17:29)
[2025-09-25 17:58] VITALS: PULSE 72; O2SAT 99
== END 2025-09-25 17:59 | disposition home or self-care (01) ==
PROVIDERS: Emergency Provider Physician Assistant; PCP Nurse Practitioner
DX: M54.89 Other dorsalgia (principal); F17.210 Nicotine dependence, cigarettes, uncomplicated; F17.290 Nicotine dependence, other tobacco product, uncomplicated
CPT/HCPCS: 96372; 99284; J1100; J1885; J2360

== ENCOUNTER → 2025-10-01 10:24 | Outpatient (BNVA) | payer MEDICARE, MEDICAID, SELFPAY | PROVIDERS: PCP Nurse Practitioner; Visit Provider Clinical Nurse Specialist Adult Health | DX: Z51.81 Encounter for therapeutic drug level monitoring (principal) | CPT/HCPCS: 80164 ==